=== PATIENT | male | born 2000 | race Asian ===

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

== ENCOUNTER 2019-12-20 22:14 | Emergency (ER) | payer OTHER ==
[~2019-12-20] VITALS: Ht 180.3 cm; Wt 75.3 kg
[2019-12-21 01:25] VITALS: BP 121/81; TEMP 98.7
== END 2019-12-21 02:06 | disposition home or self-care (01) ==
LOC: ED 22:14
DX: M70.32 Other bursitis of elbow, left elbow (principal)
CPT/HCPCS: 96372; 99283; J1885

== ENCOUNTER 2021-09-16 23:17 | Emergency (ER) | payer OTHER ==
[~2021-09-16] VITALS: Ht 180.3 cm; Wt 83.9 kg
[2021-09-17 00:18] VITALS: BP 128/77; TEMP 97.5
== END 2021-09-17 00:18 | disposition home or self-care (01) ==
LOC: ED 23:17
PROC: 0HBMXZZ Excision of Right Foot Skin, External Approach (ICD-10-PCS; principal; 2021-09-16)
DX: L84 Corns and callosities (principal)
CPT/HCPCS: 99282

== ENCOUNTER 2021-10-18 15:08 | Emergency (ER) | payer OTHER ==
[~2021-10-18] VITALS: Ht 180.3 cm; Wt 83.9 kg
[2021-10-18 15:15] VITALS: TEMP 97.3
[2021-10-18 15:35] VITALS: BP 120/83
== END 2021-10-18 15:35 | disposition home or self-care (01) ==
LOC: ED 15:08
DX: J06.9 Acute upper respiratory infection, unspecified (principal); U07.1 COVID-19
CPT/HCPCS: 87635; 99282; U0003